=== PATIENT | male | born 1970 | race Caucasian/White ===

== ENCOUNTER 2024-06-30 06:07 | Emergency (ER) | payer BC, SELFPAY ==
[2024-06-30 06:14] VITALS: BP 172/95
[2024-06-30 06:37] VITALS: BMI 29.7
--- NOTE | 2024-06-30 07:13 | ED.GENMED ---
History of Present Illness
General
Chief Complaint: Back Pain
Time Seen by Provider: 06/30/24 06:38
History of Present Illness
History of Present Illness:
Patient is a 53-year-old man presenting to the emergency department with back pain. Patient states that yesterday he slipped on the step landing on the right side. He not hit his head or lose consciousness. He is not on a blood thinner. He was
ambulatory. He states that when he was sleeping he has significant spasm which is why he came into the emergency department. No neck pain. No numbness tingling. No weakness. He did take a Percocet as well as Flexeril though it was . He
denies pain elsewhere.
Phy Exam
Physical Exam
Physical Exam:
GENERAL: no acute distress
HEENT: atraumatic, extraocular muscles intact, no signs of entrapment, dentition intact, no other obvious trauma
NECK: no midline tenderness, normal range of motion, NEXUS criteria negative, no other obvious trauma
BACK: no midline tenderness, no other obvious trauma, no obvious ecchymoses, right paraspinal tenderness to palpation
CHEST: no tenderness, no flail segment, no subcutaneous emphysema, no other obvious trauma
LUNGS: clear to auscultation bilaterally
CARDIOVASCULAR: regular rate and rhythm
ABDOMEN: soft, non-tender, no masses, no other obvious trauma
PELVIS: stable, no obvious injury
EXTREMITIES: moving all extremities, distal pulses intact, no other obvious trauma
NEUROLOGIC: awake, alert x 3, no focal deficits
Course
Orders/Labs/Results
Orders:
Orders
06/30/24 06:54
Acetaminophen [Tylenol] 1,000 mg PO NOW STA
Ketorolac [Toradol] 15 mg IM NOW STA
06/30/24 07:29
CR Lumbar Spine 2 Or 3 Views Urgent
Comment:
Reason For Exam: right paraspinal tenderness
06/30/24 08:00
Lidocaine [Lidocaine 4% Patch] 1 patch TOPICAL DAILY
Apply Lidocaine patch(s) to:: back
Vital Signs
Initial and Last Documented VS:
Initial Vital Signs
Temp Pulse Resp BP Pulse Ox
98.4 F 78 16 172/95 96
06/30/24 06:14 06/30/24 06:14 06/30/24 06:14 06/30/24 06:14 06/30/24 06:14
Last Documented Vital Signs
Temp Pulse Resp BP Pulse Ox
98.4 F 78 16 172/95 96
06/30/24 06:14 06/30/24 06:14 06/30/24 06:14 06/30/24 06:14 06/30/24 06:14
MDM/Problems Addressed
Differential Diagnosis Includes:
Patient is a 53-year-old man presenting to the emergency department with back pain in the setting of a recent fall. Vitals unremarkable on exam shows no midline spinal tenderness however he does have tenderness to the right paraspinal muscle.
Likely muscular sprain versus bony contusion. History and exam not consistent with compression fracture or rib fracture or pneumothorax. Will pain control and reassess. Consider obtaining CT imaging however after shared decision making we will
hold off.
*Critical Care Note
Total Time (30-74mins, 75-104mins- exclusive of procedures): Not Applicable
Update Note
Update Note:
On reevaluations patient pain has improved. He is requesting imaging to rule out fracture. Will obtain x-ray as I do have low suspicion of other fracture
X-ray per my interpretation with no acute fracture. Will discharge at this time. Pain medication regimen discussed with patient. All questions answered. Stable for discharge
ED Attending Note
-
Portions of this chart may have been created with voice recognition software.� Occasional wrong word or��sound alike� substitutions may have occurred due to the inherent limitations of voice recognition software.
Discharge Plan
Departure
Patient Disposition: Home (Routine Discharge)
Date of Disposition: 06/30/24
Time of Disposition: 08:34
Patient with high blood pressure during this ER visit?: Yes
Discharge Problem:
Back pain
Instructions: Upper Back Pain (DC)
Referrals:
Speedy Truong DO [Family Provider] -
Activity Restrictions/Additional Instructions:
We discussed pain medications:
You may take Tylenol (also known as Acetaminophen) for pain.
You may take 1000mg Acetaminophen (two extra-strength tablets) per dose, which should be taken every 6-8 hours, or three times a day.
If you have normal strength Tylenol, you can take 650mg (two normal strength tablets) every 4-6 hours.
Do not take more than 3,000mg (3 grams) of Acetaminophen per day.
Never take more than as directed on the bottle.
You may also take Ibuprofen (also known as Motrin or Advil). If taking with Tylenol, alternate and take between dosing.
You may take 400-800mg of Ibuprofen per dose, which should be taken every 6-8 hours.
Do not take more than 3200mg (3.2 grams) of Ibuprofen per day.
You may also benefit from using a Lidocaine Patch (also known as 'Salon Pas'), which is an over the counter pain patch.
Place it just over the site of pain, avoiding areas of skin damage, as per instructions on the patch.
Please see your primary care doctor soon to be reevaluated and to make sure that you are improving. We have included information about establishing care with a doctor if you do not have one.
We talked about your evaluation, diagnosis, and treatment in the Emergency Department today. You must see your primary doctor for recheck and followup care in order to evaluate your progress or any changes. Have your doctor recheck the test
results/information from the ED visit. As discussed, RETURN to the ED if you develop worsening/changing symptoms or have no improvement in symptoms after the treatments provided.
Interventions
Interventions:
*Risk Screen - Suicide Last Done: 06/30/24 06:34
*Neglect/Abuse Screening Last Done: 06/30/24 06:34
ED- Fall Risk Assessment Last Done: 06/30/24 06:17
*ED COVID-19 Vaccine History Last Done: 06/30/24 06:33
ED-Musculoskeletal Assessment Last Done: 06/30/24 06:36
Discharge Date and Time
Print Language: ICELANDIC
[2024-06-30] MEDS: LIDOCAINE 4% PATCH 1 PATCH TOPICAL (07:20)
[2024-06-30] MEDS: TORADOL 15 MG IM (07:22)
[2024-06-30] MEDS: TYLENOL 1000 MG PO (07:24)
== END 2024-06-30 09:26 | disposition home or self-care (01) ==
LOC: EMR 06:07
PROVIDERS: EMERGENCY PHYSICIAN Student in an Organized Health Care Education/Training Program; FAMILY PHYSICIAN Family Medicine
DX: M54.9 Dorsalgia, unspecified (principal); W10.9XXA Fall (on) (from) unspecified stairs and steps, initial encounter
CPT/HCPCS: 99284; 96372; 72100

== ENCOUNTER 2025-07-31 20:27 | Inpatient (IN) | payer BC, SELFPAY ==
[2025-07-31] VITALS (12 sets, daily range): BP systolic 120–167; BP diastolic 73–120; BMI 26.2; BMI 27.0
--- NOTE | 2025-07-31 18:15 | ED.GENMED ---
History of Present Illness
General
Chief Complaint: Withdrawal Symptoms
Source: patient
Exam Limitations: none
Time Seen by Provider: 07/31/25 18:02
History of Present Illness
History of Present Illness:
54yoM with a history of atrial fibrillation presenting with his for evaluation of alcohol withdrawal. Last drink of alcohol was 2 nights ago. He typically drinks 6-12 White Claws or Surge drinks daily. He is symptomatic with tremors,
anxiety, and visual hallucinations. He states he is seeing bugs and words on the peñaloza. He vomited once earlier today which he believes is from gagging after brushing his teeth. He has never had a withdrawal seizure before. He typically
withdrawals at home and has tremors for 4-5 days and then feels better.
Phy Exam
General Physical Exam
General Presentation: moderate distress
General Skin: warm and dry
General Habitus: normal
ENT Exam
ENT Exam: normocephalic
Cardiovascular Exam
Cardiovascular Exam: regular rate/rhythm
Pulmonary Exam
Pulmonary Exam: lungs clear, no respiratory distress, no rales, no crackles, no rhonchi and no wheezing
Neurological Exam
Neurological Exam: alert and other (+Tremors)
Oralia Coma Scale
Eye Opening: Spontaneous
Verbal Response: Oriented
Motor Response: Obeys Commands
GCS Total Score: 15
Skin Exam
Skin Exam: normal color and warm/dry
Psychiatric Exam
Psychiatric Exam: agitated and anxious
Course
Orders/Labs/Results
Orders:
Orders
07/31/25 18:13
Cardiac Monitoring- Treatment ONCE
0.9% Sodium Chloride 1000 ml [Nss] 1,000 ml IV BOLUS
Lorazepam [Ativan] 2 mg IV NOW STA
07/31/25 18:14
Electrocardiogram (*1) Urgent
Reason for Study: QTc Monitoring
EKG- Treatment ONCE
07/31/25 18:21
Complete Blood Count/With Diff Urgent
Comprehensive Metabolic Panel Urgent
Magnesium Urgent
07/31/25 18:53
Magnesium Sulfate 2 Gram/50 ml [Magnesium Sulfate] 2 gram in 50 ml IV NOW
07/31/25 19:36
Lorazepam [Ativan] 2 mg IV NOW STA
07/31/25 20:00
Admit/Transfer Patient As Directed
Co-Sign Provider:
Level of Care: Inpatient admission
Assign to:: IMU- Intermediate Care
Physician / Group: Gabi
Diagnosis: Alcohol withdrawal
Reason for Hospitalization: severe Alcohol withdrawal
Expected length of stay greater than two midnights?: Yes
ELOS- Estimated Length of Stay in days: 2
I certify the patient meets the requirements for IP care: Yes
PRN Pain Medication Management As Directed
May give lesser potent ordered pain med per pt: Yes
preference::
Protocol:: Medication orders for pain may be administered in a
manner that supports deferring to patient preference
when the pt is:
- Requesting an ordered lesser potent pain medication.
Least to most potent pain medications are defined
as: acetaminophen < NSAID < tramadol < opioids
(morphine, oxycodone, hydromorphone).
- Requesting a lesser dose of the same medication IF
ORDERED.
- Requesting a less intrusive route of administration
if both routes are prescribed by the provider (PO <
IV).
07/31/25 20:06
Phenobarbital Sodium [Phenobarbital] 260 mg 0.9% Sodium Chloride 100 ml [Nss] 100 ml IV NOW
MSAS SCORE As Directed
MSAS Score 0-4: Repeat MSAS every 2 hours until 0-4 for three consecutive assessments, then every 4 hours x 48
hours.
MSAS Score 5-7: For MILD withdrawl symptoms. Repeat MSAS and RASS every 2 hours
MSAS Score 8-11: For MODERATE withdrawal symptoms. Repeat MSAS and RASS every 1 hour. Consider ICU or IMU
level of care.
MSAS Score > 11: For SEVERE withdrawal symptoms. Repeat MSAS and RASS every 1 hour. Notify provider, consider
ICU level of care.
MSAS Additional Instructions: If no improvement or no decrease in score from severe to moderate within 12
hours, consult psychiatry
MSAS Notify Provider: Notify provider if patient requires more than 10 mg of Lorazepam in eight hour period.
07/31/25 20:37
0.9% Sodium Chloride [Nss (Preservative Free)] See Protocol IV PRN PRN
Lorazepam [Ativan] 1 mg IV Q1HPRN PRN
Lorazepam [Ativan] 2 mg IV Q1HPRN PRN
07/31/25 20:42
Osmolality, Random Urine Routine
Date Specimen was Collected: 07/31/25
Time Specimen was Collected: 20:40
Urinalysis Routine
Date Specimen was Collected: 07/31/25
Time Specimen was Collected: 20:40
Urine Drug Abuse Screen Routine
Date Specimen was Collected: 07/31/25
Time Specimen was Collected: 20:40
Urine Sodium Routine
Date Specimen was Collected: 07/31/25
Time Specimen was Collected: 20:40
07/31/25 21:38
Dextrose 5%/0.9%Sodchl 1000 ml [D5/0.9% Sodium Chloride] 1,000 ml IV 125 mls/hr
FOLic ACID [Folvite] 1 mg 0.9% Sodium Chloride 50 ml [Nss] 50 ml IV DAILYPRN
Lorazepam [Ativan] 1 mg PO Q2HPRN PRN
Metoclopramide [Reglan] 10 mg IV Q6HPRN PRN
Phenobarbital Sodium [Phenobarbital] 260 mg 0.9% Sodium Chloride 100 ml [Nss] 100 ml IV NOW
07/31/25 21:38
Case Management Consult Once
Case Management Consult: Other
Comment: Substance abuse counseling
DIETARY IP CONSULT Routine
Reason for Consult: Nutrition support, possible refeeding guidelines
MSAS SCORE As Directed
MSAS Score 0-4: Repeat MSAS every 2 hours until 0-4 for three consecutive assessments, then every 4 hours x 48
hours.
MSAS Score 5-7: For MILD withdrawl symptoms. Repeat MSAS and RASS every 2 hours
MSAS Score 8-11: For MODERATE withdrawal symptoms. Repeat MSAS and RASS every 1 hour. Consider ICU or IMU
level of care.
MSAS Score > 11: For SEVERE withdrawal symptoms. Repeat MSAS and RASS every 1 hour. Notify provider, consider
ICU level of care.
MSAS Additional Instructions: If no improvement or no decrease in score from severe to moderate within 12
hours, consult psychiatry
MSAS Notify Provider: Notify provider if patient requires more than 10 mg of Lorazepam in eight hour period.
MSAS SCORE As Directed
MSAS Score 0-4: Repeat MSAS every 2 hours until 0-4 for three consecutive assessments, then every 4 hours x 48
hours.
MSAS Score 5-7: For MILD withdrawl symptoms. Repeat MSAS and RASS every 2 hours
MSAS Score 8-11: For MODERATE withdrawal symptoms. Repeat MSAS and RASS every 1 hour. Consider ICU or IMU
level of care.
MSAS Score > 11: For SEVERE withdrawal symptoms. Repeat MSAS and RASS every 1 hour. Notify provider, consider
ICU level of care.
MSAS Additional Instructions: If no improvement or no decrease in score from severe to moderate within 12
hours, consult psychiatry
MSAS Notify Provider: Notify provider if patient requires more than 10 mg of Lorazepam in eight hour period.
DX Deep Vein Thrombosis Video Routine
08/01/25 00:00
Thiamine Injection 200 mg IV Q8
Thiamine Injection 200 mg IV Q8
08/01/25 Breakfast
Regular
Magnesium IN AM
Phosphorus IN AM
08/01/25 08:00
FOLic ACID [Folvite] 1 mg PO DAILY
Flecainide [Tambocor] 100 mg PO Q12H
Metoprolol Xl [Toprol Xl] 25 mg PO BID
Phenobarbital Sodium [Phenobarbital] 97.5 mg IV TID
08/01/25 18:00
Enoxaparin Sodium [Lovenox] 40 mg SC QPM
08/03/25 08:00
Phenobarbital [Luminal] 64.8 mg PO TID
08/04/25 08:00
Thiamine HCl [Vitamin B1] 100 mg PO BID
08/05/25 08:00
Phenobarbital [Luminal] 32.4 mg PO TID
Abnormal Lab Results
07/31/25
18:21
RBC 4.20 L 10^6/uL
(4.70-6.10)
MCH 33.8 H pg
(27.0-31.0)
Absolute Lymphs (auto) 1.1 L 10^3/uL
(1.2-3.4)
Absolute Monos (auto) 0.8 H 10^3/uL
(0.1-0.6)
Lymphocytes % 19.6 L %
(20.5-51.1)
Monocytes % 13.2 H %
(1.7-9.3)
Sodium 129 L mmol/L
(135-145)
Chloride 93 L mmol/L
(98-107)
BUN 21 H mg/dl
(9-20)
Glucose 118 H mg/dl
(70-99)
Magnesium 1.4 L mg/dl
(1.6-2.3)
Total Bilirubin 2.2 H mg/dl
(0.2-1.3)
ALT 81 H U/L
(0-50)
Total Protein 8.6 H g/dl
(6.3-8.2)
Albumin 5.1 H g/dl
(3.5-5.0)
07/31/25 18:21
07/31/25 18:21
Vital Signs
Initial and Last Documented VS:
Initial Vital Signs
Temp Pulse Resp BP Pulse Ox
98.8 F 105 18 154/105 97
07/31/25 17:58 07/31/25 17:58 07/31/25 17:58 07/31/25 17:58 07/31/25 17:58
Last Documented Vital Signs
Temp Pulse Resp BP Pulse Ox
98.9 F 68 18 167/94 98
07/31/25 23:51 07/31/25 23:30 07/31/25 23:30 07/31/25 23:30 07/31/25 23:30
MDM/Problems Addressed
Differential Diagnosis Includes:
54yoM here with alcohol withdrawal. Last drink 2 days ago. Symptomatic with visual hallucinations. Patient agitated and tremulous on initial exam. He is A&O and able to provide full history. Differential diagnosis includes: alcohol withdrawal,
delirium tremens, dehydration
Initial ED plan: Check CBC, CMP, magnesium, and EKG. 2mg IV Ativan and fluid bolus ordered.
*Pulse Oximetry
SaO2: 97
Oxygen Mode of Delivery: Room air
Patient hypoxic: no
*EKG
Interpreted by ED Provider?: Yes
EKG Intrepretation Date: 07/31/25
Heart Rate: 84
Rate: normal
Rhythm: sinus
[place]: normal axis
Interval: normal interval
QRS Pattern: normal QRS
Ischemia: non-specific ST changes
*Critical Care Note
Total Time (30-74mins, 75-104mins- exclusive of procedures): 35
Update Note
Update Note:
Labs reveal a sodium of 129, chloride 93, and magnesium of 1.4. Patient persistently symptomatic despite receiving 2 mg IV Ativan and additional 2 mg ordered. Given degree of symptoms and high risk of withdrawal seizures, will admit for further
management.
ED Attending Note
-
Portions of this chart may have been created with voice recognition software.� Occasional wrong word or��sound alike� substitutions may have occurred due to the inherent limitations of voice recognition software.
Discharge Plan
Departure
Patient Disposition: Admit
Date of Disposition: 07/31/25
Time of Disposition: 19:37
Presentation/result/management discussed w/ accepting MD/DO: Hospitalist
Discharge Problem:
Alcohol withdrawal
Interventions
Interventions:
*General Assessment Last Done: 07/31/25 17:59
*Neglect/Abuse Screening Last Done: 07/31/25 17:59
*ED Influenza Vaccine History Last Done: 07/31/25 17:59
[facility] Fall Risk Assessment Tool Last Done: 07/31/25 18:40
*Nursing Disposition Last Done: 07/31/25 21:40
ED- Neurological Assessment Last Done: 07/31/25 18:43
ED-Psychological Assessment Last Done: 07/31/25 18:43
Discharge Date and Time
Discharge Date/Time: 07/31/25 21:41
[2025-07-31 18:30] LABS: Hematocrit 39.1 % (39.0-52.0); Hemoglobin 14.2 g/dL (13.0-18.0); Mean Corp Hgb Conc. 36.3 g/dL (33.0-37.0); Mean Corpuscular Volume 93.1 fL (80.0-94.0); Nucleated Red Blood Cells % 0 % (-); Platelet Count 170 10^3/uL (130-400); Red Cell Dist. Width 11.9 % (11.5-14.5)
[2025-07-31] MEDS: NSS 1000 IV (18:30)
[2025-07-31] MEDS: ATIVAN 2 MG IV ×5 (18:31→23:01)
[2025-07-31 18:53] LABS: ALT (SGPT) 81 U/L (0-50); AST (SGOT) 55 U/L (17-59); Albumin 5.1 g/dl (3.5-5.0); Alkaline Phosphatase 75 U/L (38-126); Blood Urea Nitrogen 21 mg/dl (9-20); Calcium 9.2 mg/dl (8.4-10.2); Carbon Dioxide 25 mmol/L (22-30); Chloride 93 mmol/L (98-107); Estimated Creatinine Clearance 119 ml/min; Glucose 118 mg/dl (70-99); Magnesium 1.4 mg/dl (1.6-2.3); Potassium 3.6 mmol/L (3.5-5.1); Sodium 129 mmol/L (135-145); Total Protein 8.6 g/dl (6.3-8.2); eGFR > 60.00
[2025-07-31] MEDS: MAGNESIUM SULFATE 50 IV (19:00)
--- NOTE | 2025-07-31 19:43 | HPS.HSE ---
Family Physician
-
Family Physician: Speedy Truong
Chief Complaint
-
Withdrawal symptoms
History of Present Illness
54yoM with a history of atrial fibrillation presenting with his for evaluation of alcohol withdrawal.
Patient reports that he drinks about 12 white claws/drinks daily. His last drink was 2 nights ago. He usually stops when the drinking prevents him from walking. He has been drinking this heavily for the last few weeks. He has had a longstanding
history of alcohol dependence and has attempted self cessation in the past. He reports hospitalization for withdrawal in the past but no withdrawal seizures and no ICU admissions.
Spouse reports that symptoms started this morning approximately less than 36 hours appetite/drink. He reports tremors, anxiety, and visual estimations. Patient stated that he is seeing gait coming out of his hands. He reports seeing bugs and
peñaloza on the peñaloza. He had an episode of vomiting which he believes from gagging while brushing his teeth.
In the emergency department he was afebrile, blood pressure was 130/77, pulse was 85 and oxygen saturation was 91% on room air. ECG shows a normal sinus rhythm at a rate of 84.
CBC shows no significant abnormality with a hemoglobin of 14.2. Electrolytes shows a sodium of 129 otherwise unremarkable. BUN and creatinine were normal. Total bilirubin was elevated at 2.2 AST was 85 and ALT 81. Albumin was elevated at 5.1.
Medical History
Past Medical History
Past Medical History: Reports Arrhythmia (atrial fibrillation) and Other (Alcohol dependence)
Past Surgical History: Reports None
Social History
Alcohol: Daily
Drug: None
Family History
Family History: Not pertinent
Allergies / Home Medications
Allergies reflects when Allergies were last updated in [employer].
Home Medications with original date entered in [employer]
Allergy/Medication List:
Allergies
Allergy/AdvReac Type Severity Reaction Status Date / Time
No Known Allergies Allergy Verified 07/31/25 18:51
Home Medications
flecainide 100 mg tablet 100 mg PO Q12H 07/31/25
metoprolol succinate 25 mg tablet,extended release 24 hr (Toprol XL) 25 mg PO BID Heart Disease/Condition 07/31/25
testosterone cypionate 200 mg/mL intramuscular oil 300 mg IM Q4W 07/31/25
valacyclovir 500 mg tablet (Valtrex) 500 mg PO DAILY 07/31/25
Review of Systems
-
Constitutional: Reports No Symptoms
EENT: Reports No Symptoms
Respiratory: Reports No Symptoms
Cardiac: Reports No Symptoms
Abdomen/GI: Reports No Symptoms
: Reports No Symptoms
Musculoskeletal: Reports No Symptoms
Skin: Reports No Symptoms
Neurological: Reports No Symptoms
Endocrine: Reports No Symptoms
Hematologic/Lymphatic: Reports No Symptoms
Psych: Reports Audio or Visual Hallucinations and Other (tactile hallucinations)
Physical Exam
Vital Signs
Vital Signs
Temp Pulse Resp BP Pulse Ox
98.5 F 85 22 130/79 97
07/31/25 18:24 07/31/25 19:00 07/31/25 18:24 07/31/25 19:00 07/31/25 19:00
Physical Exam
General: Well Developed, Well Nourished and No Apparent Distress
HEENT: NormoCephalic, Moist mucous membranes and Atraumatic
Respiratory: Clear
Cardiac: S1/S2 and Regular Rhythm; No Murmur or Rub
GI: Soft, Non Tender, Non Distended and Normal Bowel Sounds; No Organomegaly
Rectal: Deferred by Provider
Musculoskeletal: No Clubbing, No Cyanosis and No Edema
Skin: No Rash
Neuro: Nonfocal/grossly intact and Tremors
Psych: Anxious
Laboratory Results
-
07/31/25 18:21
07/31/25 18:21
Laboratory Results
Total Bilirubin 2.2 mg/dl (0.2-1.3) H 07/31/25 18:21
AST 55 U/L (17-59) 07/31/25 18:21
ALT 81 U/L (0-50) H 07/31/25 18:21
Alkaline Phosphatase 75 U/L (38-126) 07/31/25 18:21
Data Reviewed
-
Medical Tests (Nuc Med, Echo, EKG etc): Image Personally Visualized and interpreted
Lab Data: Labs Reviewed by me
Old Records: Reviewed
Impression/Plan
-
IMPRESSION:
54-year-old with history of atrial fibrillation who presents to the emergency department in with alcohol withdrawal. Last drink 2 days ago. He is having hallucinations, significant tremors, nausea and tremulousness. He is not tachycardic right
now but this could be secondary to his flecainide and metoprolol. Labs notable for a sodium of 129 but otherwise unremarkable.
PLAN:
Alcohol withdrawal with hallucinations, ?DT - Last drink 48 hours ago. PAWS > 4. High risk etoh withdrawal.
- admit to imu
- Status post 4 mg of Ativan with ongoing delirium
� If symptoms not improved after 15 minutes of the 4 mg of Ativan, will start on Precedex
� Will start on phenobarbital taper
� Msas protocol
� IV thiamine, folate
- IV dextrose with normal saline
-
Hyponatremia -suspect degree of beer potomania and dehydration
� IV fluids with normal saline for now
� Check urine osms
Atrial fibrillation -well-controlled rate
� Continue flecainide 100 mg every 12
� Continue metoprolol 5 mg twice daily
� Patient is on aspirin 81 daily
DVT prophylaxis�Lovenox subcu
CODE STATUS�full code
[2025-07-31 20:55] LABS: Urine Character Clear (Clear)
[2025-07-31] MEDS: PHENOBARBITAL 104 MG IV (20:56)
[2025-07-31] MEDS: PRECEDEX 100 IV (21:49)
[2025-07-31 21:51] LABS: Glucose - Point of Care 111 mg/dl (70-99)
[2025-07-31 22:13] LABS: INR 1.24; PT 15.8 Sec (11.4-14.6)
[2025-07-31] MEDS: D5/0.9% SODIUM CHLORIDE 1000 IV (22:13)
[2025-07-31 22:14] LABS: APTT 30.8 Sec (23.4-35.0)
--- NOTE | 2025-07-31 23:00 | PTCARENOTE ---
Received pt. from ED. Admitted with ETOH withdrawal. MSAS assessment performed upon arrival to unit, score 14. Given 2mg IV Ativan. Precedex gtt started. Pt. hallucinating, impulsive, attempting to jump out of bed. Verbally redirected numerous
times. Restraints applied. Pt. heart rhythm sinus. Blood pressure normotensive. Pt. currently on nasal cannula. Lungs sound diminished. Abdomen obese. Soft, non tender. Voiding without issue. Condom catheter in place. Skin as documented. Discussed
plan of care with patient and spouse who is at bedside. Vital signs stable at this time.
[2025-07-31] MEDS: THIAMINE INJECTION 200 MG IV (23:01)
[2025-07-31] MEDS: REGLAN 10 MG IV (23:31)
[2025-08-01] VITALS (24 sets, daily range): BP systolic 109–166; BP diastolic 77–106; PULSE 2–70; BMI 26.7
[2025-08-01] MEDS: ATIVAN 2 MG IV ×4 (00:02→16:42)
[2025-08-01] MEDS: PRECEDEX 100 IV ×4 (01:01→20:12)
--- NOTE | 2025-08-01 02:00 | PTCARENOTE ---
Pt. assessment unchanged. Precedex gtt infusing. PRN Ativan per MSAS score, see MAR. Vital signs stable at this time.
--- NOTE | 2025-08-01 04:00 | PTCARENOTE ---
Pt. assessment remains unchanged. AM labs drawn. Vital signs stable at this time.
[2025-08-01 04:08] LABS: Hematocrit 36.2 % (39.0-52.0); Hemoglobin 12.9 g/dL (13.0-18.0); Mean Corp Hgb Conc. 35.6 g/dL (33.0-37.0); Mean Corpuscular Volume 95.5 fL (80.0-94.0); Platelet Count 134 10^3/uL (130-400); Red Cell Dist. Width 12.1 % (11.5-14.5)
[2025-08-01 04:12] LABS: Blood Urea Nitrogen 13 mg/dl (9-20); Calcium 8.3 mg/dl (8.4-10.2); Carbon Dioxide 25 mmol/L (22-30); Chloride 101 mmol/L (98-107); Estimated Creatinine Clearance > 125 ml/min; Glucose 211 mg/dl (70-99); Magnesium 2.4 mg/dl (1.6-2.3); Potassium 4.1 mmol/L (3.5-5.1); Sodium 134 mmol/L (135-145); eGFR > 60.00
[2025-08-01] MEDS: NSS 1000 IV (04:28)
[2025-08-01] MEDS: ATIVAN 1 MG IV ×2 (04:38→06:35)
[2025-08-01] MEDS: MIRALAX TUBE (07:06)
[2025-08-01] MEDS: FOLVITE 1 MG PO (07:50)
[2025-08-01] MEDS: TAMBOCOR 100 MG PO ×2 (07:50→19:58)
[2025-08-01] MEDS: PHENOBARBITAL 97.5 MG IV ×3 (07:52→21:51)
[2025-08-01] MEDS: THIAMINE INJECTION 200 MG IV ×3 (07:53→23:29)
--- NOTE | 2025-08-01 08:16 | W.PN.HOSP.TC ---
Today's Communication/Plan
-
see plan
Assessment / Plan
Assessment / Plan
Gen: NAD, NCAT
Neck: supple.
CV: RRR, +S1/S2, no m/r/g.
Resp: CTAB, no rales, wheezes, or rhonchi.
Abd: +BS, soft, NT, ND
Skin: No rashes.
Acute alcohol withdrawal/delirium tremens:
-s/p 4mg IV Ativan in ER
-cont Precedex gtt and Phenobarbital
-cont MSAS protocol (thiamine/folate/PRN ativan), last MSAS score 6
-cont IVFs
Other problems:
PAF: Cont Flecainide/BB
Hyponatremia, improving with IVFs
Hypomagnesemia, resolved
FULL/Lovenox
Total critical care time spent = 31 min
Anticipated Discharge: > 48 hours
Subjective/Interval History
-
Date of Service: August 01, 2025
Pt sleeping, does not wake up to shoulder shake.
Objective Data
-
Labs:
Laboratory Results
07/31/25 08/01/25
21:49 03:31
WBC 3.9 L
Hgb 12.9 L
Hct 36.2 L
Plt Count 134 D
PT 15.8 H
INR 1.24
APTT 30.8
Sodium 134 L
Potassium 4.1
Chloride 101
Carbon Dioxide 25
BUN 13
Creatinine 0.6 L
Glucose 211 H
Calcium 8.3 L
Vital Signs:
Vital Signs
Temp Pulse Resp BP Pulse Ox
97.9 F 62 11 148/92 99
08/01/25 03:19 08/01/25 08:00 08/01/25 08:00 08/01/25 08:00 08/01/25 08:00
I&O
07/31/25 08/01/25 08/02/25
06:59 06:59 06:59
Intake Total 1168.8 / 1313.9 286.2 / 286.2
Output Total 1899 / 1899
Balance -731.2 / -586.1 286.2 / 286.2
[2025-08-01] MEDS: TOPROL XL 25 MG PO ×2 (10:06→19:57)
[2025-08-01] MEDS: ATIVAN 1 MG PO ×2 (10:12→13:24)
--- NOTE | 2025-08-01 11:20 | CM ---
Addendum entered by Joanne Cherry 08/01/25 15:22:
Spoke to Precious from [facility], pt not medically appropriate to speak with them at this time, they will continue to follow.
Original Note:
Received consult, reviewed chart and met with pt bedside in ICU. Speech in garbled but was able to have a brief conversation, also spoke to his when she arrived at bedside.
Lives with his and 19yo son in 2 story home with finished basement, [address].
Independent in ADLs, personal care ans ambulation.
Pt drinks daily and is agreeable to speaking to JANINENORAH. I spoke to Gomez, he is aware and someone will be in to see him today.
Per they are moving to [place] next week, make settlement on their new home in [place] on 08/12. All their family is in [place] and she believes it will be good support for him. His last day at his job will be 08/03, she is looking in to [facility]
for him.
PCP: Speedy Truong
Anticipate discharge home, CM will continue to follow.
[2025-08-01] MEDS: LR 1000 IV ×2 (11:39→23:29)
--- NOTE | 2025-08-01 11:48 | PTCARENOTE ---
Pt remains on precedex, but weaned as charted. Easily falling asleep, but remains restless and confused when awake, but cooperative. Will continue to wean as able. Pt has been weaned to room air. brought in pt's cpap unit which resp
therapist has checked. Dr Fleming approves pt use of home device. Pt currently off clement hugger. Pt refuses to eat, but taking sips of water with meds and when awake. Rosy in room and updated. No other changes in assessment.
--- NOTE | 2025-08-01 12:08 | CON.INTV ---
Consultation
Consultation Request
Date/Time Consultation Requested: 07/31/25
Date/Time Consultation Performed: 07/31/25
Reason for Consultation: Alcohol withdrawal
Medical History
-
Chief Complaint: Alcohol withdrawal
History of Present Illness:
Patient is a 54-year-old male with a past medical history of alcohol abuse, suicidal ideation in the past and atrial fibrillation who presented to the ED on 07/31/2025 for alcohol withdrawal. Patient started having severe tremors, anxiety and visual
hallucinations with bugs crawling on peñaloza yesterday. He usually drinks 12 white claws/surge drinks a day, and states that he does not stop until it prevents him from walking. Patient has had similar episodes in the past but has not required ICU
admissions and has never had seizures. His last drink was approximately 72 hours ago. Patient also had an episode of emesis yesterday which he attributes to gagging while brushing his teeth. states that patient wanted to come to the hospital
yesterday based on his symptoms.
Past Medical History
Past Medical History: Arrhythmias (Atrial fibrillation) and Psychiatric (Suicidal ideation, alcohol abuse)
Past Surgical History: None
Social History
Alcohol: Daily
Drug: None
Personal:
Living: With Family
Family History
Family History: Reviewed & Not Pertinent
Allergies / Home Medications
Allergies
Allergy/AdvReac Type Severity Reaction Status Date / Time
No Known Allergies Allergy Verified 07/31/25 18:51
Home Medications
�Medication �Instructions �Recorded �Confirmed �Last Taken �Type
flecainide 100 mg tablet 100 mg PO Q12H 07/31/25 07/31/25 Unknown History
meclizine 25 mg tablet 25 mg PO QID PRN dizziness 07/31/25 07/31/25 Unknown History
metoprolol succinate 25 mg 25 mg PO BID Heart 07/31/25 07/31/25 Unknown History
tablet,extended release 24 hr Disease/Condition
(Toprol XL)
tadalafil 5 mg tablet 5 mg PO DAILY 07/31/25 07/31/25 Unknown History
testosterone cypionate 200 mg/mL 300 mg IM Q4W 07/31/25 07/31/25 Unknown History
intramuscular oil
valacyclovir 500 mg tablet 500 mg PO DAILY 07/31/25 07/31/25 Unknown History
(Valtrex)
Review of Systems
-
History Source: Patient
All other systems: Negative unless noted
Respiratory: No Symptoms
Cardiac: No Symptoms
Abdomen/GI: No Symptoms
: No Symptoms
Musculoskeletal: No Symptoms
Skin: No Symptoms
Neuro: Other (Tremors, hallucinations)
Hematologic/Lymphatic: No Symptoms
Vitals / Labs / Diagnostic Testing
Vital Signs
Temp Pulse Resp BP Pulse Ox
97.8 F 66 15 150/96 97
08/01/25 11:46 08/01/25 12:00 08/01/25 12:00 08/01/25 12:00 08/01/25 12:00
Lab Data
08/01/25 03:31
08/01/25 03:31
Laboratory Results
07/31/25
21:49
PT 15.8 H
INR 1.24
APTT 30.8
Diagnostic Testing:
Physical Exam
-
HEENT: Normocephalic, Anicteric and Moist Mucous Membranes
Cardiovascular: S1/S2 and Regular Rhythm
Respiratory: Clear
GI: Soft, Non Distended, Non Tender and Normal Bowel Sounds
Neurology: Awake and Tremors
Skin: Warm
Exam:
Psych: Anxious
Assessment
-
Assessment:
A 54-year-old male with heavy chronic alcohol use, last drink approximately 72 hours ago, presented with tremors, anxiety and visual hallucinations, consistent with severe alcohol withdrawal being monitored for delirium tremens given altered mental
status and autonomic hyperactivity. History of prior withdrawals but with no seizure/ICU admissions. Has required 14 mg of IV Ativan since admission; now on Precedex infusion indicating benzodiazepine refractory agitation. He is currently on
phenobarbital MSAS protocol for as needed Ativan.
Plan:
# Severe alcohol withdrawal with risk of delirium tremens
# Risk for Wernicke's encephalopathy
# Autonomic instability -hypothermia/hypotension/tachycardia from withdrawal
Continue phenobarbital MSAS protocol
Continue Precedex infusion; currently at 0.6 mcg/kg/hour
Monitor for bradycardia/hypotension
As needed Ativan per protocol for breakthrough seizures
Seizure precautions
Can consider phenobarbital boluses if agitation becomes refractory.
Continue thiamine and folate
If patient has episodes of hypertension, can use hydralazine 10 mg IV Q6H PRN
BCARES is to see him today
# Hyponatremia -improved
# Hypomagnesemia-improved
# Dehydration from poor intake
Na 129 on 07/31/2025 with urine osmolality 154 --> likely from beer potomania/dehydration due to poor p.o. intake.
Mg 1.4 on 07/31/2025 --> improved to Mg 2.4 today
IVF: Has been receiving sodium chloride infusion; will switch to LR given sodium is almost back to normal and LR has some calcium component which would help his hypocalcemia (calcium 8.1 today)/to avoid hyperchloremia
Phos 3.5- normal
Trend BMP, Mg (keep >2), Phos (keep >2.5)
Avoid rapid sodium correction (>8 mEq/24hr)
Strict I/Os, daily weights.
High risk for refeeding issues-monitor phosphorus closely.
# Sleep apnea
Uses CPAP at home.
has brought home CPAP to use while admitted.
#Atrial fibrillation
Rate well-controlled
Continue flecainide 100 mg q12h
Continue Toprol XL 25 mg PO BID
CODE STATUS: Full code
DVT prophylaxis: Lovenox 40 mg SC
Data Reviewed
-
Radiology: Report reviewed by me
Labs: Labs reviewed by me, Discussed with Physician and Discussed with Nurse
Old Records: Reviewed
--- NOTE | 2025-08-01 13:34 | PTCARENOTE ---
Pt cooperative but remains confused, hallucinating snoopy. Medicated as charted.
--- NOTE | 2025-08-01 15:13 | PTCARENOTE ---
pt restless confused. Agitated, pulling off pulse ox saying 'I am done'. Remains confused, starting to become aggressive, but settled with reorientation. Pt given phenobarb as scheduled and precedex increased. Otherwise no changes
[2025-08-01] MEDS: NSS (PRESERVATIVE FREE) 1 ML IV (16:42)
--- NOTE | 2025-08-01 17:56 | PTCARENOTE ---
Pt got oob/set off bed alarm, pulled monitor condom cath and iv's out. Was becoming aggressive, but came in and he settled when she told him to knock it off. New iv placed, medicated with 2mg IV ativan and precedex resumed. Pt also put on
his own cpap.
[2025-08-01] MEDS: LOVENOX 40 MG SC (18:09)
[2025-08-02] VITALS (25 sets, daily range): BP systolic 102–166; BP diastolic 64–101; BMI 26.6
--- NOTE | 2025-08-02 | PTCARENOTE ---
pt reassessed. no changes noted - precedex gtt continues, pt remains on MSAS, SR on monitor, oriented to name and birthday, confused about place and time. on CPAP from home. CC in place, poor appetite noted. call alcala in reach. updated at
bedside, went home for night.
[2025-08-02] MEDS: ATIVAN 1 MG IV (01:28)
[2025-08-02] MEDS: PRECEDEX 100 IV ×2 (03:22→10:54)
[2025-08-02] MEDS: APRESOLINE 10 MG IV (03:26)
[2025-08-02 03:39] LABS: Hematocrit 40.3 % (39.0-52.0); Hemoglobin 14.1 g/dL (13.0-18.0); Mean Corp Hgb Conc. 35.0 g/dL (33.0-37.0); Mean Corpuscular Volume 99.5 fL (80.0-94.0); Platelet Count 122 10^3/uL (130-400); Red Cell Dist. Width 12.0 % (11.5-14.5)
[2025-08-02 03:40] LABS: Venous Blood Gas B.E. 4.4 mmol/L (-4 to +4); Venous Blood Gas O2 Sat % 99.5 %
--- NOTE | 2025-08-02 04:09 | PTCARENOTE ---
AM labs sent. no changes in assessment noted. precedex gtt continues, pt on CPAP overnight.
[2025-08-02 04:13] LABS: ALT (SGPT) 117 U/L (0-50); AST (SGOT) 97 U/L (17-59); Albumin 4.1 g/dl (3.5-5.0); Alkaline Phosphatase 72 U/L (38-126); Blood Urea Nitrogen 8 mg/dl (9-20); Calcium 8.9 mg/dl (8.4-10.2); Carbon Dioxide 28 mmol/L (22-30); Chloride 102 mmol/L (98-107); Estimated Creatinine Clearance > 125 ml/min; Glucose 111 mg/dl (70-99); Magnesium 2.0 mg/dl (1.6-2.3); Sodium 136 mmol/L (135-145); Total Protein 7.2 g/dl (6.3-8.2); eGFR > 60.00
[2025-08-02 04:19] LABS: Potassium 3.6 mmol/L (3.5-5.1)
[2025-08-02] MEDS: FOLVITE 1 MG PO (07:32)
[2025-08-02] MEDS: MIRALAX TUBE (07:32)
[2025-08-02] MEDS: PHENOBARBITAL 97.5 MG IV ×3 (07:33→20:25)
[2025-08-02] MEDS: TAMBOCOR 100 MG PO ×2 (07:33→20:23)
[2025-08-02] MEDS: THIAMINE INJECTION 200 MG IV ×2 (07:33→15:57)
[2025-08-02] MEDS: TOPROL XL 25 MG PO ×2 (07:34→20:23)
--- NOTE | 2025-08-02 09:01 | PTCARENOTE ---
called and was given update. She reports feeling under the weather so was encouraged to stay home.
--- NOTE | 2025-08-02 09:39 | W.PN.INTV ---
Today's Communication / Plan
Recommendations
Wean Precedex as tolerated
Monitor for recurrent agitation/bradycardia
RUQ ultrasound today
CPAP nightly
Assessment
-
Assessment:
A 54-year-old male with a past medical history of atrial fibrillation s/p ablation, chronic alcohol use disorder who presented to the ED for tremors, anxiety and hallucinations. He reportedly drinks 12 alcoholic beverages a day (8% white claws),
and usually drinks to the point of ' not being able to walk anymore.' Patient last drink was 2 days prior to arrival to the hospital (> 72 hours ago). Upon presentation to the ED, pulse rate 105, respiratory rate 118, BP 154/105. Na 129, Mg 1.4,
T. bili 2.2, urine osmolality 154. Patient was admitted to the ICU for alcohol withdrawal, on Precedex with concerns for delirium tremens.
Plan:
# Alcohol withdrawal syndrome -improving; now >72 hours from last drink
Presented for tremors/anxiety/hallucinations --> concerning for delirium tremens on admission
Now calmer with intermittent confusion evidenced by nonsensical messages around 1 AM to
MSAS with phenobarbital protocol and Ativan as needed. Received 1 mg Ativan overnight.
Currently on Precedex 0.6 mcg/kg/h, down from 0.8 after receiving phenobarbital around 7:30 AM
Continue weaning Precedex as tolerated
Patient likely passed peak withdrawal phase; avoid oversedation
Reorient frequently, maintain sleep-wake cycle
Continue folate and thiamine supplementation
Hydralazine 10 mg IV Q6PRN for elevated blood pressure
BCARES consult
#Chronic obstructive sleep apnea on home CPAP
PPG 08/02/2025: pH 7.44, pCO2 43, HCO3 29 --> metabolic alkalosis with mild compensatory CO2 retention-not concerning
Continue CPAP nightly
No need for repeat blood gas unless mental status declines
Monitor SpO2
#Transaminitis-AST 97, ALT 117
#Increased total bilirubin 1.9-2.2
Pattern consistent with alcohol associate hepatitis/steatosis or mild cholestasis
Follow RUQ ultrasound today
Trend LFTs and bili
# Hyponatremia -resolved
# Hypomagnesemia-resolved
Na 129 on 07/31/2025 with urine osmolality 154 --> likely from beer potomania/dehydration due to poor p.o. intake.
Mg 1.4 on 07/31/2025 --> Mg 2 today 08/02
IVF:Received sodium chloride infusion; switched to LR has sodium normalized and LR has some calcium component which would help his hypocalcemia (calcium 8.1 today)/to avoid hyperchloremia. Now off of IV fluids.
Phos 3.3- normal
Trend BMP, Mg (keep >2), Phos (keep >2.5)
Avoid rapid sodium correction (>8 mEq/24hr)
Strict I/Os, daily weights.
#Atrial fibrillation
Rate well-controlled
Continue flecainide 100 mg q12h
Continue Toprol XL 25 mg PO BID
# Nasal congestion
Scre[place] saline nasal spray
Monitor
CODE STATUS: Full code
DVT prophylaxis: Lovenox 40 mg SC
Subjective Dataa
Subjective Data
Date of Service:
Date of Service: August 02, 2025
Chief Complaint: Biology Tutor Follow Up
Subjective:
Upon evaluation of patient this morning, he states he feels better than yesterday. Patient does not remember seeing me yesterday. Denies nausea, abdominal pain, shortness of breath, chest pain or any other symptoms. Patient was texting nonsensical
messages to his around 1 AM last night. He was on Precedex 0.8 mcg/kg/h and was decreased to 0.6 mcg/kg/h after getting phenobarbital around 7:30 AM this morning.
Review of Systems
Neuro: Confused (Intermittent)
Objective Data
Data Reviewed
Vital Signs / I&O / Oxygen:
Vital Signs
Temp Pulse Resp BP Pulse Ox
97.6 F 62 11 126/87 99
08/02/25 08:00 08/02/25 07:00 08/02/25 07:00 08/02/25 07:00 08/02/25 05:02
Intake and Output
08/01/25 08/02/25 08/03/25
06:59 06:59 06:59
Intake Total 1168.8 / 1313.9 4253.2 / 4349.3 188.2 / 188.2
Output Total 1900 / 1900 3940 / 4390 450 / 450
Balance -731.2 / -586.1 313.2 / -40.7 -261.8 / -261.8
SaO2 99
Nasal Cannula flow liters per 1
minute
Physical Exam
General: Comfortable
HEENT: Normocephalic, Anicteric and Moist Mucous Membranes
Cardiovascular: S1-S2 and Regular Rhythm
Respiratory: Clear and Non-Labored Respirations
GI: Soft, Non Distended and Normal Bowel Sounds
Neurology: Awake and Alert
Skin: Warm
Labs/Micro/Reports
Lab Data
08/02/25 03:31
08/02/25 03:31
--- NOTE | 2025-08-02 10:44 | W.PN.HOSP.TC ---
Today's Communication/Plan
-
see plan
Assessment / Plan
Assessment / Plan
Gen: NAD, AAOx3.
Eyes: EOMI, PERRLA, no scleral icterus.
Neck: supple.
CV: RRR, +S1/S2, no m/r/g.
Resp: CTAB, no rales, wheezes, or rhonchi.
Abd: +BS, soft, NT, ND
Skin: No rashes.
Neuro: CN 2-12 intact, non-focal, mild tremor.
Psych: Normal mood and affect.
Acute alcohol withdrawal/delirium tremens:
-s/p 4mg IV Ativan in ER
-cont Precedex gtt (currently at 0.6mcg/kg/hr) and Phenobarbital
-cont MSAS protocol (thiamine/folate/PRN ativan)
-cont IVFs
Other problems:
PAF: Cont Flecainide/BB
Hyponatremia, resolved
Hypomagnesemia, resolved
Thrombocytopenia, mild, trend
Transaminitis, likely due to alcohol abuse, mild, trend
Discussed with RN and critical care.
FULL/Lovenox
Total critical care time spent = 32 min
Anticipated Discharge: > 48 hours
Subjective/Interval History
-
Date of Service: August 02, 2025
Denies anxiety, tremor, diaphoresis. States mild visual hallucinations.
Objective Data
-
Labs:
Laboratory Results
08/02/25
03:31
WBC 3.7 L
Hgb 14.1
Hct 40.3
Plt Count 122 L
Sodium 136
Potassium 3.6
Chloride 102
Carbon Dioxide 28
BUN 8 L
Creatinine 0.6 L
Glucose 111 H
Calcium 8.9
Total Bilirubin 1.9 H
AST 97 H
ALT 117 H
Alkaline Phosphatase 72
Vital Signs:
Vital Signs
Temp Pulse Resp BP Pulse Ox
97.6 F 62 19 130/80 98
08/02/25 08:00 08/02/25 10:00 08/02/25 10:00 08/02/25 10:00 08/02/25 08:00
I&O
08/01/25 08/02/25 08/03/25
06:59 06:59 06:59
Intake Total 1168.8 / 1313.9 4253.2 / 4349.3 372.4 / 372.4
Output Total 1900 / 1900 3940 / 4390 450 / 450
Balance -731.2 / -586.1 313.2 / -40.7 -77.6 / -77.6
[2025-08-02] MEDS: LR IV (10:54)
[2025-08-02] MEDS: OCEAN, SALINE MIST 2 SPRAYS NASAL ×3 (12:49→20:25)
--- NOTE | 2025-08-02 13:23 | PTCARENOTE ---
Systems unchanged. Pt needed to have bm, but upon assistance to bathroom, pt was incontinent from bed to toilet. chg again, bed linens changed and pt assisted back to bed. No other changes.
--- NOTE | 2025-08-02 16:21 | PTCARENOTE ---
systems reviewed. msas under 5 t/o day, continue to wean precedex. pt still reports 'fun' hallucinations and has much milder tremors. Otherwise affect much improved.
[2025-08-02] MEDS: LOVENOX 40 MG SC (17:43)
--- NOTE | 2025-08-02 17:45 | PTCARENOTE ---
Pt ate all of dinner, then had to got to bathroom for loose stool as charted, condom cath removed.
--- NOTE | 2025-08-02 21:00 | PTCARENOTE ---
Resumed care of pt this evening. Pt A&Ox3, can move all 4, and make needs known. MSAS 0. Received pt on precedex gtt infusing via peripheral IV site.
[2025-08-03] VITALS (12 sets, daily range): BP systolic 103–150; BP diastolic 66–102; BMI 26.2
[2025-08-03] MEDS: THIAMINE INJECTION 200 MG IV ×3 (01:03→15:40)
--- NOTE | 2025-08-03 01:15 | PTCARENOTE ---
Precedex gtt turned off.
[2025-08-03] MEDS: ATIVAN 1 MG PO ×2 (05:32→12:10)
[2025-08-03 05:46] LABS: Hematocrit 40.8 % (39.0-52.0); Hemoglobin 14.5 g/dL (13.0-18.0); Mean Corp Hgb Conc. 35.5 g/dL (33.0-37.0); Mean Corpuscular Volume 95.1 fL (80.0-94.0); Platelet Count 163 10^3/uL (130-400); Red Cell Dist. Width 12.1 % (11.5-14.5)
--- NOTE | 2025-08-03 06:00 | PTCARENOTE ---
PRN ativan given for MSAS of 5. Pt having mild visual hallucinations. Pt is slightly impulsive but can be redirected.
[2025-08-03 06:02] LABS: ALT (SGPT) 99 U/L (0-50); AST (SGOT) 58 U/L (17-59); Albumin 4.3 g/dl (3.5-5.0); Alkaline Phosphatase 85 U/L (38-126); Blood Urea Nitrogen 12 mg/dl (9-20); Calcium 9.0 mg/dl (8.4-10.2); Carbon Dioxide 26 mmol/L (22-30); Chloride 103 mmol/L (98-107); Estimated Creatinine Clearance 119 ml/min; Glucose 93 mg/dl (70-99); Magnesium 2.0 mg/dl (1.6-2.3); Potassium 3.7 mmol/L (3.5-5.1); Sodium 136 mmol/L (135-145); Total Protein 7.7 g/dl (6.3-8.2); eGFR > 60.00
[2025-08-03 06:23] LABS: Nucleated Red Blood Cells % 0 % (-)
--- NOTE | 2025-08-03 07:00 | PTCARENOTE ---
Received patient A&Ox4, MSAS scored 2, self reported mild hallucination but overall symptoms improving, NSR, BP WNL, on RA, Regular diet, continent.
[2025-08-03 07:19] LABS: Glycohemoglobin (HgbA1c) 5.2 % (4.0-5.9)
[2025-08-03] MEDS: TAMBOCOR 100 MG PO ×2 (07:58→19:24)
[2025-08-03] MEDS: TOPROL XL 25 MG PO ×2 (07:58→19:25)
[2025-08-03] MEDS: LUMINAL 64.8 MG PO ×3 (08:00→21:51)
[2025-08-03] MEDS: FOLVITE 1 MG PO (08:01)
[2025-08-03] MEDS: OCEAN, SALINE MIST 2 SPRAYS NASAL ×4 (08:03→21:51)
[2025-08-03] MEDS: MIRALAX 17 GRAMS TUBE (08:03)
--- NOTE | 2025-08-03 10:33 | W.PN.HOSP.TC ---
Today's Communication/Plan
-
see plan
Assessment / Plan
Assessment / Plan
Gen: NAD, AAOx3.
Eyes: EOMI, PERRLA, no scleral icterus.
Neck: supple.
CV: RRR, +S1/S2, no m/r/g.
Resp: CTAB, no rales, wheezes, or rhonchi.
Abd: +BS, soft, NT, ND
Skin: No rashes.
Neuro: CN 2-12 intact, non-focal, mild tremor.
Psych: Normal mood and affect.
Acute alcohol withdrawal/delirium tremens:
-s/p 4mg IV Ativan in ER
-was on Precedex gtt, stopped 0100 on 08/03
-cont Phenobarbital taper
-cont MSAS protocol (thiamine/folate/PRN ativan)
-s/p IVFs
Other problems:
PAF: Cont Flecainide/BB
Hyponatremia, resolved
Hypomagnesemia, resolved
Thrombocytopenia, mild, trend
Transaminitis, likely due to alcohol abuse, mild, trend
FULL/Lovenox
Anticipated Discharge: 24 - 48 hours
Subjective/Interval History
-
Date of Service: August 03, 2025
Denies hallucinations today. Denies diaphoresis/anxiety.
Objective Data
-
Labs:
Laboratory Results
08/03/25
05:20
WBC 4.5 L
Hgb 14.5
Hct 40.8
Plt Count 163 D
Sodium 136
Potassium 3.7
Chloride 103
Carbon Dioxide 26
BUN 12
Creatinine 0.7
Glucose 93
Calcium 9.0
Total Bilirubin 1.4 H
AST 58
ALT 99 H
Alkaline Phosphatase 85
Vital Signs:
Vital Signs
Temp Pulse Resp BP Pulse Ox
98.5 F 69 25 128/92 97
08/03/25 07:23 08/03/25 09:00 08/03/25 08:00 08/03/25 09:00 08/03/25 08:00
I&O
08/02/25 08/03/25 08/04/25
06:59 06:59 06:59
Intake Total 4253.2 / 4349.3 2448.6 / 2688.6 360 / 360
Output Total 3940 / 4390 2950 / 2950
Balance 313.2 / -40.7 -501.4 / -261.4 360 / 360
--- NOTE | 2025-08-03 11:07 | CM ---
Chart reviewed and rounded with Dr. Huston
Pressors off, dc in 24- 48 hrs if stable. Moving to [place] next week
--- NOTE | 2025-08-03 12:16 | W.PN.INTV ---
Today's Communication / Plan
Recommendations
Continue phenobarb taper/ MSAS with Ativan PRN
Weaned off of Precedex
Monitor mental status
Patient stable to be downgraded to tele
Final decision to follow per ICU attending
Assessment
-
Assessment:
A 54-year-old male with a past medical history of atrial fibrillation s/p ablation, chronic alcohol use disorder who presented to the ED for tremors, anxiety and hallucinations. He reportedly drinks 12 alcoholic beverages a day (8% white claws),
and usually drinks to the point of ' not being able to walk anymore.' Patient last drink was 2 days prior to arrival to the hospital (> 72 hours ago). Upon presentation to the ED, pulse rate 105, respiratory rate 118, BP 154/105. Na 129, Mg 1.4,
T. bili 2.2, urine osmolality 154. Patient was admitted to the ICU for alcohol withdrawal, on Precedex with concerns for delirium tremens.
Plan:
# Alcohol withdrawal syndrome -improving; now >72 hours from last drink
Presented for tremors/anxiety/hallucinations --> concerning for delirium tremens on admission
Now calmer with intermittent mild visual hallucinations
MSAS with phenobarbital protocol and Ativan as needed. Received 1 mg Ativan overnight.
Precedex weaned off since last night
Patient likely passed peak withdrawal phase; avoid oversedation
Reorient frequently, maintain sleep-wake cycle
Continue folate and thiamine supplementation
Hydralazine 10 mg IV Q6PRN for elevated blood pressure
BCARES consult
#Chronic obstructive sleep apnea on home CPAP
PPG 08/02/2025: pH 7.44, pCO2 43, HCO3 29 --> metabolic alkalosis with mild compensatory CO2 retention-not concerning
Continue CPAP nightly
No need for repeat blood gas unless mental status declines
Monitor SpO2
#Transaminitis-AST 97, ALT 117
#Increased total bilirubin 1.9-2.2
Pattern consistent with alcohol associate hepatitis/steatosis or mild cholestasis
RUQ ultrasound did not show any abnormalities
T. bili trending down-2.2 --> 1.9 --> 1.4
AST/ALT also trending down.
# Hyponatremia -resolved
# Hypomagnesemia-resolved
Na 129 on 07/31/2025 with urine osmolality 154 --> likely from beer potomania/dehydration due to poor p.o. intake.
Mg 1.4 on 07/31/2025 --> Mg 2 today 08/03
IVF:Received sodium chloride infusion; switched to LR has sodium normalized and LR has some calcium component which would help his hypocalcemia (calcium 8.1 today)/to avoid hyperchloremia. Now off of IV fluids.
Phos trended and normal
Trend BMP, Mg (keep >2), Phos (keep >2.5)
Avoid rapid sodium correction (>8 mEq/24hr)
Strict I/Os, daily weights.
#Atrial fibrillation
Rate well-controlled
Continue flecainide 100 mg q12h
Continue Toprol XL 25 mg PO BID
# Nasal congestion
[place] saline nasal spray as needed
CODE STATUS: Full code
DVT prophylaxis: Lovenox 40 mg SC
Subjective Dataa
Subjective Data
Date of Service:
Date of Service: August 03, 2025
Chief Complaint: Security Operations Specialist Follow Up
Subjective:
Patient still in mild visual hallucinations after which she was given 1 mg Ativan this morning. Otherwise patient has significantly improved clinically. No new complaints. Stated he wants to walk around the floor.
Review of Systems
Neuro: Other (Visual hallucinations)
Objective Data
Data Reviewed
Vital Signs / I&O / Oxygen:
Vital Signs
Temp Pulse Resp BP Pulse Ox
98.4 F 69 25 128/92 97
08/03/25 11:33 08/03/25 09:00 08/03/25 08:00 08/03/25 09:00 08/03/25 08:00
Intake and Output
08/02/25 08/03/25 08/04/25
06:59 06:59 06:59
Intake Total 4253.2 / 4349.3 2448.6 / 2688.6 360 / 360
Output Total 3940 / 4390 2950 / 2950
Balance 313.2 / -40.7 -501.4 / -261.4 360 / 360
SaO2 97
Nasal Cannula flow liters per 1
minute
Physical Exam
General: Comfortable
HEENT: Normocephalic, Anicteric and Moist Mucous Membranes
Cardiovascular: S1-S2 and Regular Rhythm
Respiratory: Clear and Non-Labored Respirations
GI: Soft, Non Distended and Normal Bowel Sounds
Neurology: Awake and AO x 3
Skin: Warm
Labs/Micro/Reports
Lab Data
08/03/25 05:20
08/03/25 05:20
[2025-08-03] MEDS: LOVENOX 40 MG SC (18:21)
[2025-08-04 01:18] VITALS: BP 120/77
[2025-08-04 06:00] VITALS: BMI 26.8
[2025-08-04 06:21] LABS: Hematocrit 39.5 % (39.0-52.0); Hemoglobin 14.2 g/dL (13.0-18.0); Mean Corp Hgb Conc. 35.9 g/dL (33.0-37.0); Mean Corpuscular Volume 96.3 fL (80.0-94.0); Platelet Count 160 10^3/uL (130-400); Red Cell Dist. Width 11.9 % (11.5-14.5)
[2025-08-04 06:48] LABS: ALT (SGPT) 72 U/L (0-50); AST (SGOT) 41 U/L (17-59); Albumin 4.1 g/dl (3.5-5.0); Alkaline Phosphatase 70 U/L (38-126); Blood Urea Nitrogen 12 mg/dl (9-20); Calcium 8.9 mg/dl (8.4-10.2); Carbon Dioxide 26 mmol/L (22-30); Chloride 104 mmol/L (98-107); Estimated Creatinine Clearance 119 ml/min; Glucose 96 mg/dl (70-99); Magnesium 2.3 mg/dl (1.6-2.3); Potassium 3.8 mmol/L (3.5-5.1); Sodium 136 mmol/L (135-145); Total Protein 7.2 g/dl (6.3-8.2); eGFR > 60.00
[2025-08-04 07:00] LABS: Absolute Neutrophils -Man Diff 1.6 10^3/uL (1.4-6.5); Normal RBC Morphology Yes; Platelets Checked Yes; Total Cells Counted 100
[2025-08-04] MEDS: TOPROL XL 25 MG PO (07:31)
[2025-08-04] MEDS: TAMBOCOR 100 MG PO (07:31)
[2025-08-04] MEDS: VITAMIN B1 100 MG PO (07:31)
[2025-08-04] MEDS: FOLVITE 1 MG PO (07:31)
[2025-08-04] MEDS: LUMINAL 64.8 MG PO (07:31)
[2025-08-04] MEDS: OCEAN, SALINE MIST 2 SPRAYS NASAL (07:32)
[2025-08-04 07:33] VITALS: BP 142/97
--- NOTE | 2025-08-04 11:03 | W.PN.HOSP.TC ---
Today's Communication/Plan
-
d/c
Assessment / Plan
Assessment / Plan
Gen: NAD, AAOx3.
Eyes: EOMI, PERRLA, no scleral icterus.
Neck: supple.
CV: remains RRR, +S1/S2, no m/r/g.
Resp: remains CTAB, no rales, wheezes, or rhonchi.
Skin: No rashes.
Neuro: CN 2-12 intact, non-focal
Psych: Normal mood and affect.
Acute alcohol withdrawal/delirium tremens:
-s/p 4mg IV Ativan in ER
-was on Precedex gtt, stopped 0100 on 08/03
-cont Phenobarbital taper while in the hospital
-cont MSAS protocol (thiamine/folate/PRN ativan)
-s/p IVFs
Other problems:
PAF: Cont Flecainide/BB
Hyponatremia, resolved
Hypomagnesemia, resolved
Thrombocytopenia, mild, trend
Transaminitis, likely due to alcohol abuse, mild, trend
FULL/Lovenox
Total time spent on d/c = 31 min. This included today's physical exam, progress note, review of laboratory and diagnostic data, preparation of discharge documents and prescriptions, and discussions about the pt's hospital course and discharge plan
with the patient and other certified medical records coder involved in the patient's care.
Anticipated Discharge: Today
Subjective/Interval History
-
Date of Service: August 04, 2025
Denies tremors, anxiety, hallucinations, diaphoresis.
Objective Data
-
Labs:
Laboratory Results
08/04/25
06:08
WBC 3.8 L
Hgb 14.2
Hct 39.5
Plt Count 160
Sodium 136
Potassium 3.8
Chloride 104
Carbon Dioxide 26
BUN 12
Creatinine 0.7
Glucose 96
Calcium 8.9
Total Bilirubin 1.0
AST 41
ALT 72 H
Alkaline Phosphatase 70
Vital Signs:
Vital Signs
Temp Pulse Resp BP Pulse Ox
98.2 F 78 16 142/97 100
08/04/25 08:38 08/04/25 07:33 08/04/25 07:33 08/04/25 07:33 08/04/25 08:00
I&O
08/03/25 08/04/25 08/05/25
06:59 06:59 06:59
Intake Total 2448.6 / 2688.6 1799 / 1799
Output Total 2950 / 2950
Balance -501.4 / -261.4 1799
--- NOTE | 2025-08-04 11:39 | CM ---
Met with patient at bedside
He is relocating to [place] w/ family and can seek treatment there
will transport home
Plan: Discharge to home; no services coordinated for him a this time
[2025-08-04 11:44] VITALS: BP 162/99
--- NOTE | 2025-08-04 12:13 | PTCARENOTE ---
pt and given discharge instructions, verbalized understanding. ivs removed, pressure dressings applied. pt sent home with belongings.
--- NOTE | 2025-08-04 14:21 | W.DCSUMMARY ---
Discharge Summary
Discharge Data
Date of Admission: 07/31/25
Date of Discharge: 08/04/25
-
Pending Results: No
Hospital Course
Primary diagnoses:
Acute alcohol withdrawal with delirium tremens
Alcohol abuse disorder
Secondary diagnoses:
Paroxysmal atrial fibrillation
Hyponatremia
Hypomagnesemia
Thrombocytopenia due to alcohol abuse
Transaminitis due to alcohol abuse
Consultants:
Critical care
Imaging:
CXR: No acute cardiopulmonary process.
Hospital course: 54-year-old male who presented with chief complaint of alcohol withdrawal symptoms as outlined in H&P done on admission. The patient was placed in the ICU and treated supportively with IV fluids. He was treated with a
phenobarbital taper and Precedex drip. The Precedex drip was able to be weaned off prior to discharge. He was given thiamine and folate. He was counseled on alcohol cessation. He was discharged in medically stable condition.
Discharge Plan
-
Patient Disposition: Home (Routine Discharge)
Discharge Diagnosis/Procedures: Acute alcohol abuse with delirium tremens
Condition: Good
Diet: No restrictions
Activity: As tolerated
Driving Restrictions: As prior to admission
Referrals:
Speedy Truong DO [Family Provider, [facility]] - in less than 1 week
Prescriptions:
New
folic acid 1 mg Tablet
1 mg PO DAILY Qty: 0 0RF
thiamine mononitrate (vit B1) 100 mg Tablet
100 mg PO BID Qty: 0 0RF
Continued
valacyclovir [Valtrex] 500 mg Tablet
500 mg PO DAILY MDD herpes PRN (Reason: Infection)
flecainide 100 mg Tablet
100 mg PO Q12H
metoprolol succinate [Toprol XL] 25 mg Tablet Extended Release 24 Hr
25 mg PO BID
testosterone cypionate 200 mg/mL oil
300 mg IM FR
meclizine 25 mg Tablet
25 mg PO QID PRN (Reason: dizziness)
tadalafil 5 mg Tablet
5 mg PO PRN PRN (Reason: ed)
Rx Instructions:
as directed
Discharge Orders:
Discharge Patient (As Directed); Ordered 08/04/25
Ordered By: Jack Huston
Discharge Date and Time
Discharge Date/Time: 08/04/25 12:14
Print Language: SLOVENIAN
== END 2025-08-04 12:14 | disposition home or self-care (01) | DRG 897 ==
LOC: ICU 20:27
PROVIDERS: Nurse Practitioner Family; Physician Assistant; ADMITTING PHYSICIAN Internal Medicine; ATTENDING PHYSICIAN Internal Medicine; EMERGENCY PHYSICIAN Student in an Organized Health Care Education/Training Program; FAMILY PHYSICIAN Family Medicine; OTHER PHYSICIAN Internal Medicine Critical Care Medicine
DX: F10.231 Alcohol dependence with withdrawal delirium (principal); E87.1 Hypo-osmolality and hyponatremia; R45.851 Suicidal ideations; I48.0 Paroxysmal atrial fibrillation; E83.42 Hypomagnesemia; D69.59 Other secondary thrombocytopenia; F41.9 Anxiety disorder, unspecified; Z79.82 Long term (current) use of aspirin; E86.0 Dehydration; D64.9 Anemia, unspecified; E83.51 Hypocalcemia; G47.30 Sleep apnea, unspecified; K70.9 Alcoholic liver disease, unspecified; Z79.899 Other long term (current) drug therapy
CPT/HCPCS: 71045; 76700; 80048; 80053; 80306; 80307; 81003; 82248; 82805; 82962; 83036; 83735; 83935; 84100; 84300; 85025; 85027; 85610; 85730; 93005; 93975; 94660; 96361; 96374; 96375; 96376; 99291